=== PATIENT | male | born 1960 | race Caucasian/White ===

== ENCOUNTER 2016-10-03 05:35 | Emergency (ER) | payer BC ==
[2016-10-03 06:41] LABS: BASO % 0.6 % (0.0-2.0); EOS # 0.1 K/uL (0.0-0.7); EOS % 1.4 % (0.0-4.0); LYMPH # 2.4 K/uL (1.0-4.3); LYMPH % 48.9 % (20.0-40.0); MEAN CELL VOLUME 85.6 fL (80.0-94.0); MEAN CORPUSCULAR HEMOGLOBIN 27.9 pg (27.0-31.0); MEAN CORPUSCULAR HGB CONC 32.6 g/dL (33.0-37.0); MEAN PLATELET VOLUME 8.3 fL (7.2-11.7); MONO # 0.5 K/uL (0.0-0.8); MONO % 9.5 % (0.0-10.0); NRBC % 0.1 % (0.0-2.0); RED CELL DISTRIBUTION WIDTH 12.9 % (11.5-14.5); WHITE BLOOD COUNT 4.8 K/uL (4.8-10.8)
--- NOTE | 2016-10-03 06:42 | C.PDOC ---
History Of Present Illness The patient, a 55 y/o male, presents to the ED for evaluation of abdominal pain which began around 4 days ago. Patient also notes intermittent nausea and reports feeling bloating. Patient states he took [id number] Pepto-Bismol but found no relief. Patient denies fever, chills, constipation, diarrhea, dyrusia, and hematuria. Time Seen by Provider: 10/03/16 06:00 Chief Complaint (Nursing): Abdominal Pain History Per: Patient History/Exam Limitations: no limitations Onset/Duration Of Symptoms: Days (4), Intermittent Episodes Current Symptoms Are (Timing): Still Present Quality Of Discomfort: "Pain" Associated Symptoms: Nausea. denies: Fever, Chills, Diarrhea, Constipation, Urinary Symptoms (dysuria/hematuria ) Exacerbating Factors: None Alleviating Factors: None Last Bowel Movement: Today Recent travel outside of the [place]: No Additional History Per: Patient Past Medical History Reviewed: Historical Data, Nursing Documentation, Vital Signs Vital Signs: Last Vital Signs Temp 97.7 F 10/03/16 05:42 Pulse 73 10/03/16 05:42 Resp 20 10/03/16 05:42 BP 160/90 H 10/03/16 05:42 Pulse Ox 99 10/03/16 06:53 - Medical History PMH: Asthma, Diabetes, HTN, Hypercholesterolemia Surgical History: No Surg Hx Family History: States: Unknown Family Hx - Social History Hx Tobacco Use: No Hx Alcohol Use: Yes Hx Substance Use: No - Immunization History Hx Tetanus Toxoid Vaccination: No Hx Influenza Vaccination: No Hx Pneumococcal Vaccination: No Review Of Systems Except As Marked, All Systems Reviewed And Found Negative. Constitutional: Negative for: Fever, Chills Gastrointestinal: Positive for: Nausea, Abdominal Pain. Negative for: Diarrhea , Constipation Genitourinary: Negative for: Dysuria, Hematuria Physical Exam - Physical Exam Appears: Non-toxic, No Acute Distress Skin: Normal Color, Warm, Dry Head: Atraumatic Eye(s): bilateral: Normal Inspection Oral Mucosa: Moist Neck: Supple Chest: Symmetrical, No Deformity, No Tenderness Cardiovascular: Rhythm Regular, No Murmur Respiratory: Normal Breath Sounds, No Rales, No Rhonchi, No Wheezing Gastrointestinal/Abdominal: Soft, Tenderness (mild to left lower quadrant and epigastric region ), No Guarding, No Rebound, No Other (no tenderness to right lower quadrant on palpation ) Back: Normal Inspection, No CVA Tenderness, No Vertebral Tenderness, No Paraspinal Tenderness Extremity: Normal ROM, Capillary Refill (less than 2 seconds ) Neurological/Psych: Oriented x3, Normal Speech, Normal Cognition Gait: Steady ED Course And Treatment - Laboratory Results Result Diagrams: 10/03/16 06:33 10/03/16 06:33 O2 Sat by Pulse Oximetry: 99 (on RA) Pulse Ox Interpretation: Normal Progress Note: Obstructive Series Abdomen XR and labs were ordered and reviewed. Patient received Bentyl PO and Pepcid IV. Labs and Abd XR reviewed and d/w pt, follow up instructions and return precautions. Reassessment Condition: Improved Disposition - Disposition Disposition: HOME/ ROUTINE Disposition Time: 07:02 Condition: STABLE Additional Instructions: Take meds as directed High fiber diet Follow up with PMD Return to ER if worse Prescriptions: Polyethylene Glycol 3350 [Miralax] 17 gm PO DAILY #1 bottle Instructions: Constipation (ED) - Clinical Impression Clinical Impression: Constipation - PA / CHINESE HERBALIST / Resident Statement MD/DO has reviewed & agrees with the documentation as recorded. - Scribe Statement The provider has reviewed the documentation as recorded by the Scribe (Madyson Resendez) All medical record entries made by the Scribe were at my direction and personally dictated by me. I have reviewed the chart and agree that the record accurately reflects my personal performance of the history, physical exam, medical decision making, and the department course for this patient. I have also personally directed, reviewed, and agree with the discharge instructions and disposition.
[2016-10-03 06:45] LABS: CHLORIDE 102 mmol/L (98-107); POTASSIUM 4.4 mmol/L (3.6-5.2); SODIUM 140 mmol/L (132-148)
[2016-10-03 06:47] LABS: BILIRUBIN,TOTAL 0.3 mg/dL (0.2-1.3); CARBON DIOXIDE 27 mmol/L (22-30); GFR AFRICAN-AMERICAN > 60
[2016-10-03 06:48] LABS: ALB/GLOB RATIO 1.5 (1.0-2.1); ALKALINE PHOSPHATASE 64 U/L (38-126); ALT/SGPT 57 U/L (21-72); AST/SGOT 35 U/L (17-59); BLOOD UREA NITROGEN 18 mg/dL (9-20); GLUCOSE,RANDOM 131 mg/dL (75-110)
[2016-10-03 06:50] LABS: RBC URINE 1 /hpf (0-3); URINE BILIRUBIN NEGATIVE (NEGATIVE); URINE BLOOD NEGATIVE (NEGATIVE); URINE COLOR Yellow (YELLOW); URINE GLUCOSE (UA) NORMAL (Normal); URINE KETONE NEGATIVE (NEGATIVE); URINE LEUKOCYTE ESTERASE NEG Leu/uL (Negative); URINE PROTEIN NEGATIVE (NEGATIVE); URINE UROBILINOGEN NORMAL mg/dL (0.2-1.0); WBC URINE < 1 /hpf (0-5)
[2016-10-03 07:15] VITALS: BP 137/90; PULSE 64; RESP 18; TEMP 98.1; O2SAT 100
--- NOTE | 2016-10-03 09:46 | RAD ---
PROCEDURE: Obstructive series 10/03/2016 HISTORY: abd pain COMPARISON: CT scan abdomen and pelvis dated 10/22/2015 TECHNIQUE: Frontal view of the chest and supine/erect views of the abdomen performed. FINDINGS: Heart size normal. Lung richter clear without focal consolidation or effusion. No apparent pneumothorax. No free air seen under the diaphragmatic surfaces. No evidence of obstruction. Moderate amount of stool seen within the at ascending colon consistent with mild constipation. There appears to be a associated localized ileus distal right small bowel a Several tiny calcifications right true pelvis could represent calcified pelvic phleboliths however small distal right UVJ calculus not excluded IMPRESSION: No acute cardiopulmonary disease. Findings consistent with mild constipation No evidence of acute mechanical bowel obstruction. No free air.
== END 2016-10-03 07:15 | disposition home or self-care (01) ==
LOC: C.ER 05:35
DX: K59.00 Constipation, unspecified (principal)

== ENCOUNTER 2017-11-02 08:56 | Emergency (ER) | payer BC ==
[2017-11-02] MEDS ORDERED: Sodium Chloride 0.9% 1,000 ML IV ONE (09:38)
[2017-11-02] MEDS ORDERED: Sodium Chloride 0.9% 1,000 ML ONE (09:52)
[2017-11-02 10:23] LABS: BASO % 0.4 % (0.0-2.0); EOS # 0.1 K/uL (0.0-0.7); EOS % 1.4 % (0.0-4.0); HEMOGLOBIN 13.8 g/dL (12.0-18.0); LYMPH # 1.9 K/uL (1.0-4.3); LYMPH % 25.9 % (20.0-40.0); MEAN CELL VOLUME 85.9 fL (80.0-94.0); MEAN CORPUSCULAR HEMOGLOBIN 28.6 pg (27.0-31.0); MEAN CORPUSCULAR HGB CONC 33.3 g/dL (33.0-37.0); MEAN PLATELET VOLUME 8.5 fL (7.2-11.7); MONO # 1.1 K/uL (0.0-0.8); MONO % 15.9 % (0.0-10.0); NEUT % 56.4 % (50.0-75.0); NRBC % 0.1 % (0.0-2.0); RBC 4.82 Mil/uL (4.40-5.90); RED CELL DISTRIBUTION WIDTH 13.6 % (11.5-14.5); WHITE BLOOD COUNT 7.1 K/uL (4.8-10.8)
[2017-11-02 10:31] LABS: SQUAMOUS EPITHIAL < 1 /hpf (0-5); URINE BILIRUBIN NEGATIVE (NEGATIVE); URINE BLOOD NEGATIVE (NEGATIVE); URINE CLARITY Hazy (Clear); URINE COLOR Yellow (YELLOW); URINE GLUCOSE (UA) NORMAL (Normal); URINE LEUKOCYTE ESTERASE NEG Leu/uL (Negative); URINE PROTEIN NEGATIVE (NEGATIVE); URINE UROBILINOGEN NORMAL mg/dL (0.2-1.0)
--- NOTE | 2017-11-02 10:36 | C.PDOC ---
History Of Present Illness 56 y/o male, w/ PMhx of diabetes , HTN, and kidney stones, presents to the ER complaining of right- sided flank pain and diarrhea which has been present for the past 2 days. Patient states that he had multiple episodes of diarrhea. Patient reports that he feels nauseous and he is not able to take "anything by mouth." Of note, patient recently returned from [facility]. Time Seen by Provider: 11/02/17 09:16 Chief Complaint (Nursing): Male Genitourinary History Per: Patient History/Exam Limitations: no limitations Onset/Duration Of Symptoms: Days Current Symptoms Are (Timing): Still Present Severity: Moderate Associated Symptoms: Nausea, Diarrhea. denies: Fever, Chills, Vomiting Past Medical History Reviewed: Historical Data, Nursing Documentation, Vital Signs Vital Signs: Last Vital Signs Temp 98 F 11/02/17 11:35 Pulse 81 11/02/17 11:35 Resp 18 11/02/17 11:35 BP 123/86 11/02/17 11:35 Pulse Ox 97 11/02/17 11:42 - Medical History PMH: Asthma, Diabetes, HTN, Hypercholesterolemia Surgical History: No Surg Hx Family History: States: No Known Family Hx - Social History Hx Tobacco Use: No Hx Alcohol Use: Yes Hx Substance Use: No - Immunization History Hx Tetanus Toxoid Vaccination: No Hx Influenza Vaccination: No Hx Pneumococcal Vaccination: No Review Of Systems Except As Marked, All Systems Reviewed And Found Negative. Constitutional: Negative for: Fever, Chills Gastrointestinal: Positive for: Nausea, Abdominal Pain (right-sided flank pain) , Diarrhea. Negative for: Vomiting Genitourinary: Negative for: Dysuria, Hematuria Physical Exam - Physical Exam Appears: Non-toxic, No Acute Distress Skin: Normal Color, Warm, Dry Head: Atraumatic, Normacephalic Eye(s): bilateral: Normal Inspection Nose: Normal Oral Mucosa: Moist Neck: Supple Chest: Symmetrical Cardiovascular: Rhythm Regular Respiratory: Normal Breath Sounds, No Rales, No Rhonchi, No Wheezing Gastrointestinal/Abdominal: Soft, Tenderness (right-sided upper abdominal tenderness) Neurological/Psych: Oriented x3, Normal Speech ED Course And Treatment - Laboratory Results Result Diagrams: 11/02/17 10:13 11/02/17 10:43 Lab Interpretation: Normal O2 Sat by Pulse Oximetry: 97 (RA) Pulse Ox Interpretation: Normal - CT Scan/US No standard instances Other Rad Studies (CT/US): Read By Radiologist, Radiology Report Reviewed CT/US Interpretation: FINDINGS: LOWER THORAX: The visualized lungs are clear. LIVER: Normal in size. No gross lesion or ductal dilatation. GALLBLADDER AND BILE DUCTS: No calcified gallstones. PANCREAS: Normal in size. No gross lesion or ductal dilatation. SPLEEN: Normal in size. ADRENALS: No discrete nodule. KIDNEYS AND URETERS: Normal in size without nephrolithiasis. No hydronephrosis. VASCULATURE: No aortic aneurysm. BOWEL: The small bowel loops are normal in caliber. There is apparent mild mural thickening in the transverse and descending colon with mild pericolonic inflammatory changes. No bowel dilatation or obstruction. APPENDIX: Normal appendix. PERITONEUM: No free fluid. No free air. LYMPH NODES: No enlarged lymph nodes. BLADDER: Partially decompressed. REPRODUCTIVE: Unremarkable. BONES: No acute fracture. Within normal limits for the patient's age. OTHER FINDINGS: There are bilateral small fat containing inguinal hernias. There is a small fat containing umbilical hernia. IMPRESSION: Findings are most compatible with nonspecific acute infectious/inflammatory colitis involving the transverse and descending colon. No evidence of bowel dilatation or obstruction. Progress Note: treated with IVF NSS, zofran and bentyl. On re-evaluation abdomen soft. Treated with flagyl and cipro Reassessment Condition: Improved Medical Decision Making Medical Decision Making: Plan: --Labs --UA -- CT - Abd & Pelv. -- Bentyl IM --Zofran IV -- IV Fluids Disposition Counseled Patient/Family Regarding: Studies Performed, Diagnosis, Need For Followup, Rx Given - Disposition Referrals: [facility] [Outside] [facility] [Outside] Disposition: HOME/ ROUTINE Disposition Time: 11:40 Condition: STABLE Additional Instructions: Follow up with PMD for further evaluation Return to ED if any increase symptoms Prescriptions: Ciprofloxacin [Cipro] 1 tab PO BID #14 tab metroNIDAZOLE [Flagyl] 500 mg PO Q8 #21 tab Instructions: Diarrhea and Traveler's Diarrhea, Child (DC), Viral Gastroenteritis, Adult (DC) Forms: [facility] (Kazakh), Work Excuse - POA Present On Arrival: None - Clinical Impression Clinical Impression: Colitis - PA / JAVA LEAD / Resident Statement MD/DO has reviewed & agrees with the documentation as recorded. - Scribe Statement The provider has reviewed the documentation as recorded by the Scribe Michel Chaudhary Provider Attestation All medical record entries made by the Dinhibe were at my direction and personally dictated by me. I have reviewed the chart and agree that the record accurately reflects my personal performance of the history, physical exam, medical decision making, and the department course for this patient. I have also personally directed, reviewed, and agree with the discharge instructions and disposition.
--- NOTE | 2017-11-02 10:57 | CT ---
PROCEDURE: CT Abdomen and Pelvis without intravenous contrast HISTORY: Abdominal pain COMPARISON: 10/22/2015. TECHNIQUE: CT scan of the abdomen and pelvis was performed without administration of intravenous contrast. Oral contrast was not administered. Coronal and sagittal reformatted images were obtained. Radiation dose: Total exam DLP = 739.15 mGy-cm. This CT exam was performed using one or more of the following dose reduction techniques: Automated exposure control, adjustment of the mA and/or kV according to patient size, and/or use of iterative reconstruction technique. FINDINGS: LOWER THORAX: The visualized lungs are clear. LIVER: Normal in size. No gross lesion or ductal dilatation. GALLBLADDER AND BILE DUCTS: No calcified gallstones. PANCREAS: Normal in size. No gross lesion or ductal dilatation. SPLEEN: Normal in size. ADRENALS: No discrete nodule. KIDNEYS AND URETERS: Normal in size without nephrolithiasis. No hydronephrosis. VASCULATURE: No aortic aneurysm. BOWEL: The small bowel loops are normal in caliber. There is apparent mild mural thickening in the transverse and descending colon with mild pericolonic inflammatory changes. No bowel dilatation or obstruction. APPENDIX: Normal appendix. PERITONEUM: No free fluid. No free air. LYMPH NODES: No enlarged lymph nodes. BLADDER: Partially decompressed. REPRODUCTIVE: Unremarkable. BONES: No acute fracture. Within normal limits for the patient's age. OTHER FINDINGS: There are bilateral small fat containing inguinal hernias. There is a small fat containing umbilical hernia. IMPRESSION: Findings are most compatible with nonspecific acute infectious/inflammatory colitis involving the transverse and descending colon. No evidence of bowel dilatation or obstruction.
[2017-11-02 11:03] LABS: ALB/GLOB RATIO 1.1 (1.0-2.1); ALBUMIN 3.8 g/dL (3.5-5.0); ALT/SGPT 58 U/L (21-72); AST/SGOT 48 U/L (17-59); BLOOD UREA NITROGEN 21 mg/dL (9-20); CALCIUM 9.4 mg/dl (8.6-10.4); GFR AFRICAN-AMERICAN > 60; GFR NON-AFRICAN AMERICAN > 60; LIPASE 19 U/L (23-300)
[2017-11-02 11:36] VITALS: BP 123/86; PULSE 81; RESP 18; TEMP 98
[2017-11-02 11:39] VITALS: O2SAT 97
== END 2017-11-02 11:45 | disposition home or self-care (01) ==
LOC: C.ER 08:56
DX: K52.9 Noninfective gastroenteritis and colitis, unspecified (principal); I10 Essential (primary) hypertension; E11.9 Type 2 diabetes mellitus without complications; E78.00 Pure hypercholesterolemia, unspecified
CPT/HCPCS: 74176; 80053; 81001; 83690; 85025; 96361; 96372; 96374; 99285; J0500; J2405; J7040

== ENCOUNTER 2018-03-26 06:43 | Emergency (ER) | payer BC ==
[2018-03-26 07:06] VITALS: O2SAT 98
[2018-03-26] MEDS ORDERED: Lidocaine 5% Patch TD ONE ×2 (07:39→07:45)
--- NOTE | 2018-03-26 07:39 | C.PDOC ---
History Of Present Illness 57 years old male presents to ED for complaints of worsening right calf pain that began 2 weeks ago. Patient reports pain has been present and intermittent for 1 year. Patient describes symptoms "would feel very tight when I awake" but he is able to walk without any difficulties. Patient currently states he gets similar pain while walking and has to stop to periodically stretch his calf. He also reports new onset "Pop" felt behind his right knee while walking associated with mild swelling and bruising to the top of right lower extremity. Patient also states he saw PMD for similar complaints 2 weeks ago, s/p outpt US "No Blood clot." Denies diuretic use, chest pain, SOB/RECIO, or direct trauma. Patient states he stands for prolonged time at work. WORSENING R CALF PAIN X 2 WEEKS, PRESENT INTERMIT X 1 YR. PS INITIALLY "WOULD FEEL VERY TIGHT WHEN I AWAKE" BUT ABLE TO WALK WO DIFFICULTY. NOW, GETS SIM PAIN DURING WALKING AND HAS TO STOP TO PERIODICALLY STRETCH MUSIC. NEW ONSET "POP" FELT BEHIND R KNEE WHILE WALKING, +MILD SWELL AND BRUISING TOP OF R LE. PS SAW PMD FOR SAME 2 WKS AGO, S/P OUTPT US "NO BLOOD CLOT". NO CP, SOB/RECIO, DIRECT TRAUMA. PS STANDS FOR PROLONGED TIME AT WORK. DENIES DIURETIC USE EXAM NAD NONTOXIC EXT RLE MINOR ASYM TOP R TIB/FIB W LOCAL FAINT BRUISING, NONTEND COMPARED TO LLE. NO PALP CORD. +TEND @ INSERTION OF GASTROC . FULL FLEX/EXT R FOOT WO DIFF. SKIN NEG GAIT WNL MDM GASTROC SPASM W TEAR. NSAIDS, K+ CHECK, ADVISED NEED FOR P.T., PODIATRY Time Seen by Provider: 03/26/18 07:17 Chief Complaint (Nursing): Lower Extremity Problem/Injury History Per: Patient History/Exam Limitations: no limitations Onset/Duration Of Symptoms: Days (14) Current Symptoms Are (Timing): Still Present Recent travel outside of the [place]: No Past Medical History Reviewed: Historical Data, Nursing Documentation, Vital Signs Vital Signs: Last Vital Signs Temp 97.8 F 03/26/18 06:57 Pulse 83 03/26/18 06:57 Resp 20 03/26/18 06:57 BP 175/108 H 03/26/18 06:57 Pulse Ox 98 03/26/18 06:57 - Medical History PMH: Asthma, Diabetes, HTN, Hypercholesterolemia Surgical History: No Surg Hx Family History: States: Unknown Family Hx - Social History Hx Tobacco Use: No Hx Alcohol Use: Yes Hx Substance Use: No - Immunization History Hx Tetanus Toxoid Vaccination: No Hx Influenza Vaccination: No Hx Pneumococcal Vaccination: No Review Of Systems Except As Marked, All Systems Reviewed And Found Negative. Musculoskeletal: Positive for: Other (Right calf pain. Right knee pain associated with mild swelling and bruising ) Physical Exam - Physical Exam Appears: Non-toxic, No Acute Distress Skin: Normal Color, Warm, Dry, No Rash Head: Atraumatic, Normacephalic Eye(s): bilateral: Normal Inspection, PERRL, EOMI Oral Mucosa: Moist Chest: Symmetrical, No Tenderness Cardiovascular: Rhythm Regular Respiratory: Normal Breath Sounds, No Rales, No Rhonchi, No Wheezing, Other (NARD) Gastrointestinal/Abdominal: Bowel Sounds (Active ), Soft, No Tenderness Extremity: Tenderness (At insertion of gastroc ), Other (Minor asymetrical top Right TIB/FIB with local faint bruising, Nontender compared to left lower ext remity. No palpable Cord. Full flexion/extension of right foot without difficulty ) Extremity: Bilateral: Normal Color And Temperature Pulses: Left Radial: Normal, Right Radial: Normal Neurological/Psych: Oriented x3, Normal Speech Gait: Steady ED Course And Treatment - Laboratory Results Result Diagrams: 03/26/18 07:52 O2 Sat by Pulse Oximetry: 98 (RA) Pulse Ox Interpretation: Normal Medical Decision Making Medical Decision Making: Plan: * Tylenol * Motrin * Flexeril Progress: Gastrocnemius spasm with tear. Administered NSAIDS. K+ checked. Advised patient to follow up with Podiatry. Upon re-evaluation, patient is feeling much better and is stable for discharge. Counseling has been provided to parents and patient. Return if symptoms persist or acutely worsen. Patient is medically stable and ready for discharge. Disposition Counseled Patient/Family Regarding: Studies Performed, Diagnosis, Need For Followup, Rx Given - Disposition Referrals: your,PMD [Other] [facility] [Outside] [facility] [Outside] Cecile Gunn DPM [Staff Provider] - Disposition: HOME/ ROUTINE Disposition Time: 08:28 Condition: IMPROVED Additional Instructions: APPLY PATCH TO AFFECTED AREA. MAX 3 PATCHES AT A TIME. REMOVE PATCH 12 HOURS AFTER INITIAL APPLICATION. ALTERNATE 12 HOURS ON, 12 HOURS OFF. Prescriptions: RX: Cyclobenzaprine [Flexeril] 10 mg PO TID #15 tab Lidocaine 5% [Lidoderm] 1 ea TD PRN PRN #10 patch PRN Reason: Pain, Moderate (4-7) RX: Naproxen 250 mg PO BID #30 tablet Instructions: Muscle Spasms (DC), Calf Stretches Forms: [facility] (Thai), Work Excuse - Clinical Impression Clinical Impression: Strain of calf muscle - Scribe Statement The provider has reviewed the documentation as recorded by the Scribbernadette Lackey All medical record entries made by the Dinhibbernadette were at my direction and personally dictated by me. I have reviewed the chart and agree that the record accurately reflects my personal performance of the history, physical exam, [facility] decision making, and the department course for this patient. I have also personally directed, reviewed, and agree with the discharge instructions and disposition.
[2018-03-26 08:33] VITALS: PULSE 74; RESP 17
[2018-03-26 08:48] VITALS: BP 136/87; TEMP 98.1
== END 2018-03-26 08:52 | disposition home or self-care (01) ==
LOC: C.ER 06:43
DX: S86.811A Strain of other muscle(s) and tendon(s) at lower leg level, right leg, initial encounter (principal); X58.XXXA Exposure to other specified factors, initial encounter